=== PATIENT | male | born 1945 | race Caucasian/White ===

== ENCOUNTER 2016-06-29 09:45 | Emergency (ER) | payer MEDICARE, BC ==
[2016-06-29 10:42] VITALS: BP 143/91
--- NOTE | 2016-06-29 11:35 | ED ---
Throat Pain/Nasal Congestion - HPI Summary HPI Summary: [facility] [place] [facility] with reports of frontal ACUÑA and max sinus pressure x 1 week. Pt state also with nasal congestion and PND. Pt denies fever , chills. Pt took Motrin and Sudafed with minimal relief. No vision changes. mild ear fullness. Worse with leaning forward, better with shower. No nausea, vomiting. no cp, sob, abd pain. No rash No vision changes Pt's medications reviewed at this visit. - History of Current Complaint Chief Complaint: UCRespiratory Time Seen by Provider: 06/29/16 11:06 Hx Obtained From: Patient Onset/Duration: Gradual Onset Severity: Mild Associated Signs And Symptoms: Positive: Sinus Discomfort, Nasal Discharge. Negative: Wheezing - Allergies/Home Medications Allergies/Adverse Reactions: Allergies Allergy/AdvReac Type Severity Reaction Status Date / Time No Known Allergies Allergy Verified 06/29/16 10:32 Home Medications: Home Medications RiFAXimin* [Xifaxan*] 550 mg PO BID 06/29/16 [History Confirmed 06/29/16] PMH/Surg Hx/FS Hx/Imm Hx Previously Healthy: Yes Endocrine/Hematology History: Denies: Hx Anticoagulant Therapy, Hx Diabetes, Hx Thyroid Disease Cardiovascular History: Denies: Hx Congestive Heart Failure, Hx Deep Vein Thrombosis, Hx Hypertension , Hx Myocardial Infarction, Hx Pacemaker/ICD Respiratory History: Denies: Hx Asthma, Hx Chronic Obstructive Pulmonary Disease (COPD), Hx Lung Cancer, Hx Pneumonia, Hx Pulmonary Embolism GI History: Denies: Hx Gall Bladder Disease, Hx Gastrointestinal Bleed, Hx Ulcer, Hx Urosepsis History: Denies: Hx Kidney Stones, Hx Renal Disease Musculoskeletal History: Reports: Hx Back Problems - back pain, Other Musculoskeletal History - left calf tingling and numbness Sensory History: Reports: Hx Contacts or Glasses - glasses Denies: Hx Hearing Aid Opthamlomology History: Reports: Hx Contacts or Glasses - glasses Neurological History: Denies: Hx Dementia, Hx Migraine, Hx Seizures, Hx Transient Ischemic Attacks (TIA) Psychiatric History: Denies: Hx Anxiety, Hx Depression, Hx Panic Disorder, Hx Schizophrenia, Hx Bipolar Disorder - Cancer History Cancer Type, 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 Hx Hematologic Symptoms: No - Surgical History Surgery Procedure, Year, and Place: INTESTINAL resection 07/2010 Infectious Disease History: No Infectious Disease History: Denies: Traveled Outside the [place] in Last 30 Days - Family History Known Family History: Positive: Diabetes, Other - mom with DM Negative: Cardiac Disease, Hypertension - Social History Occupation: Employed Full-time Lives: With Family Alcohol Use: None Substance Use Type: Reports: None Smoking Status (MU): Never Smoked Tobacco Review of Systems Constitutional: Negative Eyes: Negative Negative: Photophobia, Blurred Vision, Drainage, Erythema Positive: Nasal Discharge, Other - sinus congestion, frontal and max ACUÑA/ pressure. Negative: Sore Throat Cardiovascular: Negative Respiratory: Negative Gastrointestinal: Negative Negative: Abdominal Pain, Vomiting, Diarrhea, Nausea Musculoskeletal: Negative Skin: Negative Positive: Headache. Negative: Weakness, Paresthesia, Numbness, Syncope All Other Systems Reviewed And Are Negative: Yes Physical Exam Triage Information Reviewed: Yes Vital Signs On Initial Exam: Initial Vitals Temp Pulse Resp BP Pulse Ox 97.7 F 75 18 143/91 99 06/29/16 10:34 06/29/16 10:34 06/29/16 10:34 06/29/16 10:34 06/29/16 10:34 Vital Signs Reviewed: Yes Appearance: Positive: Well-Appearing, No Pain Distress, Well-Nourished Skin: Positive: Warm, Skin Color Reflects Adequate Perfusion, Dry Head/Face: Positive: Normal Head/Face Inspection Eyes: Positive: Normal, EOMI, [place] ENT: Positive: Hearing grossly normal, Pharynx normal. Negative: TMs normal - right TM - dull, no fluid, no erythema left TM wnl turbinates inflammed and boggy + PND No erythema, no exudate + TTP max sinuses R>L + TTP frontal sinus increased intensity when leaned foward Neck: Positive: Supple, Nontender, No Lymphadenopathy Respiratory/Lung Sounds: Positive: Clear to Auscultation, Breath Sounds Present. Negative: Wheezes Cardiovascular: Positive: Normal, RRR, Other - no temporal artery pain b/l. Negative: Murmur Abdomen Description: Positive: Nontender, No Organomegaly, Soft Bowel Sounds: Positive: Present Musculoskeletal: Positive: Normal, Strength/ROM Intact Neurological: Positive: Normal, Sensory/Motor Intact, Alert, Oriented to Person Place, Time Psychiatric: Positive: Normal AVPU Assessment: Alert - [place] Coma Scale Best Eye Response: 4 - Spontaneous Best Motor Response: 6 - Obeys Commands Best Verbal Response: 5 - Oriented Diagnostics - Vital Signs Vital Signs Temp Pulse Resp BP Pulse Ox 06/29/16 10:34 97.7 F 75 18 143/91 99 - Laboratory Lab Statement: Any lab studies that have been ordered have been reviewed, and results considered in the medical decision making process. EENT Course/Dx - Course Assessment/Plan: Pt with frontal pressure, max pressure and pnd x 1 week. Pt with boggy turbinates and PND on exam. Will start Amox, flonase. f/u with PCP. pt states pcp retiring - will give physicial referral line. Pt's blood pressure was elevated at today's visit. Pt advised to follow-up with PCP in 1-2 weeks for a recheck - Diagnoses Provider Diagnoses: Sinusitis Discharge - Discharge Plan Condition: Stable Disposition: HOME Prescriptions: Amoxicillin (*) [Amoxicillin 875 MG (*)] 875 mg PO BID #20 tab Fluticasone NASAL SPRAY 50MCG* [Flonase NASAL SPRAY 50MCG*] 2 spray BOTH NARES DAILY #1 btl Patient Education Materials: Sinusitis (ED) Referrals: Ishan Smith MD [Primary Care Provider] - [facility] [[facility]] Additional Instructions: - Stay well hydrated. Drink plenty of non-alcoholic, non-caffinated beverages. - Take antibiotics as prescribed until gone -Use nasal spray as prescribed - After you have been on antibiotics for 2 days - change your toothbrush and your pillowcase. These infections are spread by secretions - do NOT share eating or drinking utensils - clean items you share with other people such as cell phones, computer mouse, TV remote, computer tablets, etc - moist heat - warm towel, hot shower may be soothing to your sinus pressure - Alternate ibuprofen (Advil, Motrin) 600mg and Tylenol every 3 hours for pain or fever. Take with food. Do NOT take for more than 4-5 days. - if your symptoms persist, contact your doctor to schedule a follow-up appointment. You have been given the contact for the physician referral center through [facility] - they will assist you in finding a new primary care physician when yours retires
== END 2016-06-29 11:40 | disposition home or self-care (01) ==
LOC: UCCORT 09:45
DX: J32.9 Chronic sinusitis, unspecified (principal)
CPT/HCPCS: 99212; G0463

== ENCOUNTER 2016-06-30 14:24 | Emergency (ER) | payer MEDICARE, BC ==
[2016-06-30] MEDS ORDERED: Acetaminophen TAB* 325 MG PO ONE (14:46)
--- NOTE | 2016-06-30 14:47 | UC ---
Headache HPI - HPI Summary HPI Summary: 70 yo male with frontal ACUÑA x 1 weeks nasal congestion seen here yesterday and started on AMOX about 9AM developed shaking chills/increased ACUÑA 8/10, and bilateral sacral iliac pain radiating down both legs to feet and tingling was unable to get comfortable due to back pain nausea - History Of Current Complaint Chief Complaint: UCGeneralIllness Stated Complaint: NAUSEA,HEADACHE Time Seen by Provider: 06/30/16 14:37 Hx Obtained From: Patient Onset/Duration: Gradual Onset, Lasting Weeks Onset Of Symptoms: Still Present, Worse Since(Note Comment) - today Initially Headache Was: Mild Currently Pain Is: Moderate Pain Intensity: 7 Pain Scale Used: 0-10 Numeric Character: Dull, Pressure Location of Headache: Frontal Aggravating Factor: Other - worse bending over Allevating Factors: Nothing Associated Signs And Symptoms: Positive: Nausea, Sinus Pressure - Allergies/Home Medications Allergies/Adverse Reactions: Allergies Allergy/AdvReac Type Severity Reaction Status Date / Time No Known Allergies Allergy Verified 06/30/16 14:34 PMH/Surg Hx/FS Hx/Imm Hx Previously Healthy: Yes Endocrine History Of: Denies: Diabetes, Thyroid Disease, Hyperthyroidism, Hypothyroidism, Dyslipidemia Cardiovascular History Of: Denies: Cardiac Disorders, Hypertension, Pacemaker/ICD, Myocardial Infarction , Congestive Heart Failure, Atrial Fibrillation, Deep Vein Thrombosis, Bleeding Disorders Respiratory History Of: Denies: COPD, Asthma, Bronchitis, Pneumonia, Pulmonary Embolism GI/ History Of: Denies: Gastroesophageal Reflux, Ulcer, Gastrointestinal Bleed, Gall Bladder Disease, Kidney Stones, Diverticulitis, Renal Disease, Urosepsis Neurological History Of: Denies: TIA, CVA, Dementia, Seizures, Migraine Psychological History Of: Denies: Anxiety, Depression, Bipolar Disorder, Schizophrenia, Post Traumatic Stress Disorder Cancer History Of: Reports: Colorectal Cancer Denies: Lung Cancer, Breast Cancer, Prostate Cancer, Cervical Cancer Other History Of: Negative For: HIV, Hepatitis B, Hepatitis C, Anticoagulant Therapy - Surgical History Surgical History: Yes Surgery Procedure, Year, and Place: INTESTINAL resection 07/2010 - Family History Known Family History: Positive: Diabetes, Other - mom with DM Negative: Cardiac Disease, Hypertension - Social History Alcohol Use: None Substance Use Type: None Smoking Status (MU): Never Smoked Tobacco - Immunization History Most Recent Influenza Vaccination: 2016 Most Recent Tetanus Shot: UTD Most Recent Pneumonia Vaccination: UTD Review of Systems Constitutional: Chills Skin: Negative Eyes: Negative ENT: Nasal Discharge Respiratory: Negative Cardiovascular: Negative Gastrointestinal: Diarrhea - diarrhea x 4 months ...has had extensive w/u including colonoscopy, Other - nausea Genitourinary: Negative Motor: Decreased ROM Neurovascular: Negative Musculoskeletal: Negative Neurological: Headache Psychological: Negative All Other Systems Reviewed And Are Negative: Yes Physical Exam Triage Information Reviewed: Yes Appearance: Well-Appearing, No Pain Distress, Well-Nourished, Thin Vital Signs: Initial Vital Signs Temp 98.4 F 06/30/16 14:29 Pulse 80 06/30/16 14:29 Resp 16 06/30/16 14:29 BP 159/98 06/30/16 14:29 Pulse Ox 100 06/30/16 14:29 Vital Signs Reviewed: Yes Eyes: Positive: Conjunctiva Clear ENT: Positive: Hearing grossly normal, Pharynx normal, Nasal congestion, TMs normal, Other: - mild sinus tenderness. Negative: Nasal drainage, TM bulging, TM dull, TM red, Tonsillar swelling, Tonsillar exudate, Trismus, Muffled/hoarse voice Neck: Positive: Supple, Nontender Respiratory: Positive: Lungs clear, Normal breath sounds, No respiratory distress, No accessory muscle use Cardiovascular: Positive: RRR Abdomen Description: Positive: Nontender, No Organomegaly, Soft. Negative: Bruit, CVA Tenderness (R), CVA Tenderness (L), Hepatomegaly, Peritoneal Signs, Pulsatile Mass, Splenomegaly Bowel Sounds: Positive: Present Musculoskeletal: Positive: Strength Intact, ROM Intact, No Edema Neurological: Positive: Alert, Muscle Tone Normal, Other: - normal gait/GCS 15/ 15, cranial nerves intact, strength 5/5, dtrs symmetric Psychological Exam: Normal Skin Exam: Normal Re-Evaluation - Re-Evaluation First Eval Re-Evaluation Time: 16:10 Change: Improved - ACUÑA 6-7, back pain and leg numbness gone, still with nausea CT brain : negative Headache Course/Dx - Differential Dx/Diagnosis Provider Diagnoses: headache Discharge - Discharge Plan Condition: Stable Disposition: HOME Prescriptions: Naproxen Sodium [Naproxen Sodium 500 MG TAB] 500 mg PO BID PRN #30 tab PRN Reason: Pain Ondansetron TAB* [Zofran 4 MG Tab*] 4 mg PO Q6H PRN #10 tab PRN Reason: Nausea Patient Education Materials: Back Pain (ED), General Headache (ED) Referrals: Ishan Smith MD [Primary Care Provider] - 3 Days (I suggest you get rechecked this week/your BP was high here 159/98) Additional Instructions: RECHECK FOR NEW OR WORSENING SYMPTOMS I suggest you follow up with your MD this week If the back pain recurs you may need imaging of your pain
--- NOTE | 2016-06-30 15:25 | RAD ---
HISTORY: Frontal headache COMPARISONS: None TECHNIQUE: Multiple contiguous axial CT scans were obtained of the head without intravenous contrast. FINDINGS: HEMORRHAGE/INFARCT: There is no hemorrhage or acute infarct. MASSES/SHIFT: There is no mass or shift. EXTRA-AXIAL SPACES: There are no extra-axial fluid collections. SULCI AND VENTRICLES: The sulci and ventricles are normal in size and position for the patient's stated age. CEREBRUM: There are no focal parenchymal abnormalities. BRAINSTEM: There are no focal parenchymal abnormalities. CEREBELLUM: There are no focal parenchymal abnormalities. VESSELS: The vessels are grossly normal. PARANASAL SINUSES: The paranasal sinuses are clear. ORBITS: The orbits are unremarkable. BONES AND SOFT TISSUE: No bone or soft tissue abnormalities are noted. OTHER: None IMPRESSION: NO ACUTE INTRACRANIAL PATHOLOGY.
[2016-06-30] MEDS ORDERED: Ondansetron ODT TAB* 4 MG PO ONE (16:10)
[2016-06-30 16:16] VITALS: BP 154/91
== END 2016-06-30 16:31 | disposition home or self-care (01) ==
LOC: UCCORT 14:24
DX: R51 Headache (principal); R09.81 Nasal congestion; Z85.038 Personal history of other malignant neoplasm of large intestine
CPT/HCPCS: 70450; 99212; A9270-GY; G0463

== ENCOUNTER 2018-07-23 18:20 | Emergency (ER) | payer MEDICARE, BC ==
--- OUTSIDE RECORDS SUMMARY | 2018-07-23 18:54 | XMS REPORT | Continuity of Care Document ---
:1945 External Reference #:[id number] Author Name Shasha Donis M.D. Address [address] [place] [address] Care Team Providers Name Role Phone Devan Jerez DO Care Team Information Foam Dispenser Unavailable Devan Jerez DO Primary Care Physician Unavailable Payers Date Identification Numbers Payment Provider Subscriber Policy Number: [id number] Medicare Ari Reyes PayID: [id number] [address] [place] [address] Expires: 2017 Policy Number: [id number] Medicare Edkris Reyes PayID: [id number] [address] [place] [address] Policy Number: [id number] [facility] Ari Reyes PayID: [id number] [address] [place] [address] Problems Active Problems Provider Date Incomplete emptying of bladder Shasha Donis M.D. Onset: 06/01/2018 Bladder muscle dysfunction - overactive Shasha Donis M.D. Onset: 2017 Malignant tumor of prostate Shasha Donis M.D. Onset: 12/29/2017 Family History Date Family Member(s) Observation Comments General Non Contributory Mother due to Alzheimer's () Disease First Sister due to Breast Cancer () - Metastasized to bone Social History Type Date Description Comments Sex Unknown Marital Status Lives With Home Environment Lives Alone Occupation manager marketing sales Work Status Currently Working ETOH Use Rarely consumes alcohol Tobacco Use Start: Unknown Patient denies history of smoking Recreational Drug Use Denies Drug Use Smoking Status Reviewed: 07/02/18 Patient denies history of smoking Allergies, Adverse Reactions, Alerts Active Allergies Reaction Severity Comments Date NKDA 04/01/2016 Shellfish-derived Products Nausea and Vomiting 12/29/2017 Medications Active Medications SIG Qnty Indications Ordering Provider Date Finasteride 1 by mouth every 90tabs Shasha Donis, 07/08/2018 5mg Tablets day M.D. Tamsulosin HCL 1 cap by mouth 90caps Shasha Donis, 0.4mg every day M.D. Capsules Sumatriptan Succinate 1 tablet by Unknown mouth and then 1 100mg Tablets 2 hours later qday prn History Medications Gentamicin Sulfate given once in office Gagandeep, 01/11/2018 - for in office Cynthia Pulliam 01/12/2018 80mg/ml Solution procedure. given intramuscular Ciprofloxacin HCL One by mouth twice a 6tabs C61 Gagandeep, 12/29/2017 - 500mg day starting the day Cynthia Pulliam 01/19/2018 Tablets before procedure Enema morning of procedure 133ml C61 Gagandeep, 12/29/2017 - Enema Cynthia Pulliam 01/11/2018 Myrbetriq 1 by mouth every day 30tabs N32.81 Gagandeep, 12/29/2017 - 50mg Tablets Cynthia Pulliam 06/01/2018 ER 24HR Budesonide 1 by mouth three 90caps R19.7 Carrie, 04/24/2016 - 3mg Caps DR times a day MD Jean Claude 12/29/2017 Part Imodium A-D 1 tab three times a 90tabs R19.7 Carrie, 04/24/2016 - 2mg Tablets day as needed MD Jean Claude 12/29/2017 Cholestyramine Light unit by mouth twice 30units Carrie, 04/14/2016 - a day with large MD Jean Claude 12/29/2017 4GM/Dose Powder glass of water Imodium A-D 1 tab three times a 90tabs R19.7 Carrie, 04/01/2016 - 2mg Tablets day as needed MD Jean Claude Unknown Golytely drink half the 4000ml Z85.9 Carrie, 04/01/2016 - 236gm Solution evening before and MD Jean Claude Unknown Rec half the morning of the procedure (1 cup every 10') Dulcolax 4 tablets taken a 4tabs Z85.9 Carrie, 04/01/2016 - 5mg Tablets DR 8pm the day before MD Jean Claude Unknown the procedure Magnesium Citrate one bottle at noon 296ml Z85.9 Carrie, 04/01/2016 - MD Jean Claude Unknown 1.745GM/30ML Solution Medications Administered in Office Medication SIG Qnty Indications Ordering Provider Date Injection Gentamicin To 80/2ML Shasha Donis M.D. 01/11/2018 Injection Vital Signs Date Vital Result Comment 07/08/2018 3:13pm BP Systolic 145 mmHg BP Diastolic 82 mmHg Body Temperature 98.0 F Heart Rate 70 /min Respiratory Rate 18 /min Height 71 inches 5'11" Weight 160.00 lb BMI (Body Mass Index) 22.3 kg/m2 BSA (Body Surface Area) 1.92 m2 [place] body weight in kilograms 78 kg O2 % BldC Oximetry 97 % Pain Level 0 06/01/2018 10:40am BP Systolic 145 mmHg BP Diastolic 86 mmHg Heart Rate 61 /min Respiratory Rate 16 /min Height 71 inches 5'11" Weight 173.50 lb BMI (Body Mass Index) 24.2 kg/m2 BSA (Body Surface Area) 1.98 m2 [place] body weight in kilograms 78 kg O2 % BldC Oximetry 95 % Ra Pain Level 0 01/19/2018 8:33am BP Systolic 137 mmHg BP Diastolic 77 mmHg Body Temperature 97.7 F Heart Rate 72 /min Respiratory Rate 18 /min Weight 167.00 lb O2 % BldC Oximetry 100 % Pain Level 0 01/11/2018 3:01pm BP Systolic 148 mmHg BP Diastolic 91 mmHg Heart Rate 84 /min Respiratory Rate 16 /min O2 % BldC Oximetry 97 % 01/11/2018 2:59pm BP Systolic 149 mmHg BP Diastolic 53 mmHg Heart Rate 77 /min Respiratory Rate 16 /min O2 % BldC Oximetry 98 % 01/11/2018 2:32pm BP Systolic 163 mmHg BP Diastolic 82 mmHg Body Temperature 97.8 F Heart Rate 69 /min Respiratory Rate 16 /min Height 71 inches 5'11" Weight 165.25 lb BMI (Body Mass Index) 23.0 kg/m2 BSA (Body Surface Area) 1.94 m2 Orient body weight in kilograms 78 kg O2 % BldC Oximetry 97 % Pain Level 0 12/29/2017 2:20pm Height 71 inches 5'11" Weight 170.25 lb BMI (Body Mass Index) 23.7 kg/m2 BSA (Body Surface Area) 1.97 m2 [place] body weight in kilograms 78 kg 04/24/2016 8:52am BP Systolic Sitting Left Arm 138 mmHg BP Diastolic Sitting Left Arm 88 mmHg Heart Rate 67 /min Respiratory Rate 16 /min Height 71 inches 5'11" Weight 166.00 lb BMI (Body Mass Index) 23.1 kg/m2 BSA (Body Surface Area) 1.95 m2 04/01/2016 2:53pm BP Systolic Sitting Left Arm 156 mmHg BP Diastolic Sitting Left Arm 90 mmHg Heart Rate 69 /min Respiratory Rate 16 /min Height 71 inches 5'11" Weight 168.00 lb BMI (Body Mass Index) 23.4 kg/m2 BSA (Body Surface Area) 1.96 m2 [place] body weight in kilograms 78 kg Results Test Date Facility Test Result H/L Range Note Urine Dipstick 07/08/2018 [facility] Color yellow Yellow Ua Clarity clear neg Ua Leuko neg Negative Ua Nitrite neg Negative Ua Urobilinogen 0.2 0.2 - 1.0 E.U./dL Ua Protein neg Negative Ua PH 5.5 Low 6.5-7.5 Ua Blood neg Negative Ua Specific [place] 1.030 1.010-1.030 Ua Ketones neg Negative Ua Bilirubin neg Negative Ua Glucose neg Negative Urine Dipstick 06/01/2018 [facility] Inhouse Ua Color yellow Yellow Ua Clarity clear Clear Ua Leuko negative Negative Ua Nitrite negatve Negative Ua Urobilinogen 0.2 0.2 - 1.0 E.U./dL Ua Protein 15 High Negative Ua PH 5.5 Low 6.5-7.5 Ua Blood negative Negative Ua Specific [place] 1.030 1.010-1.030 Ua Ketones negative Negative Ua Bilirubin negative Negative Ua Glucose negative Negative Ua RFX Micro & Culture 12/29/2017 [facility] Urine Color YELLOW Yellow 1 [address] [place] [address] [phone] Urine Clarity CLEAR Clear Urine Glucose - Dipstick NEGATIVE mg/dL Negative Urine Bilirubin - Dipstick NEGATIVE Negative Urine Ketone NEGATIVE mg/dL Negative Urine Specific [place] >=1.030 N 1.010-1.030 Urine Blood TRACE Negative Urine PH 6.0 Low 6.5-7.5 Urine Protein - Dipstick NEGATIVE mg/dL Negative Urine Urobilinogen - Dipstick 0.2 E.U./dL N 0.2-1.0 Urine Nitrite - Dipstick NEGATIVE Negative Urine Leuk Esterase NEGATIVE Negative Source: URINE, CLEAN CAT <SEE NOTE> 2 Laboratory test 12/29/2017 [facility] Prostate 5.59 ng/mL < 4.0 [address] [place] [address] Antigen [phone] Urine Dipstick 12/29/2017 [facility] Inhouse Ua Color Yellow Yellow Ua Clarity CLEAR Clear Ua Leuko Negative Negative Ua Nitrite Negative Negative Ua Urobilinogen 0.2 0.2 - 1.0 E.U./dL Ua Protein Negative Negative Ua PH 5.5 Low 6.5-7.5 Ua Blood 10 High Negative Ua Specific [place] 1.030 1.010-1.030 Ua Ketones Negative Negative Ua Bilirubin Negative Negative Ua Glucose Negaitve Negative pH Ur Strip.auto 09/05/2017 N2N/CCD Import pH Ur Strip.auto 6.5 6.5-7.5 Urobilinogen Ur 09/05/2017 N2N/CCD Import Urobilinogen Ur 1.0 0.2-1.0 Strip-aCnc Strip-aCn Urine total 09/05/2017 N2N/CCD Import Urine total Moderate High Negative bilirubin bilirubin detection by detection by automated test automated test strip Urine hemoglobin 09/05/2017 N2N/CCD Import Urine hemoglobin Large High Negative detection by detection by automated test automated test strip strip Urine glucose 09/05/2017 N2N/CCD Import Urine glucose 100 High Negative measurement by measurement by automated test automated test strip strip (mass/volume) Urine appearance 09/05/2017 N2N/CCD Import Urine appearance Cloudy Clear determination determination Unloinc 09/05/2017 N2N/CCD Import Unloinc Culture To Follow Nitrite Ur Ql 09/05/2017 N2N/CCD Import Nitrite Ur Ql Positive High Negative Strip.auto Strip.auto Leukocyte 09/05/2017 N2N/CCD Import Leukocyte Trace High Negative esterase Ur Ql esterase Ur Ql Strip.auto Strip.auto Ketones Ur 09/05/2017 N2N/CCD Import Ketones Ur Trace High Negative Strip.auto-mCnc Strip.auto-mCnc Color Ur 09/05/2017 N2N/CCD Import Color Ur Red Yellow Calcium oxalate 09/05/2017 N2N/CCD Import Calcium oxalate Few None Seen crystals crystals detection in detection in urine sedime urine sediment by light microscopy Bacteria 09/05/2017 N2N/CCD Import Bacteria Few None Seen detection in detection in urine sediment by urine sediment light micr by light microscopy Automated urine 09/05/2017 N2N/CCD Import Automated urine TNTC High 0-2 sediment sediment erythrocyte count erythrocyte by micr count by microscopy (number/high power field) Bacteria Ur Cult 09/03/2017 N2N/CCD Import Bacteria Ur Cult No Growth: Final Report pH Ur Strip.auto 09/03/2017 N2N/CCD Import pH Ur Strip.auto 6.0 Low 6.5- 7.5 Urobilinogen Ur 09/03/2017 N2N/CCD Import Urobilinogen Ur 0.2 0.2-1.0 Strip-aCnc Strip-aCnc Urine total 09/03/2017 N2N/CCD Import Urine total Negative Negative bilirubin bilirubin detection by detection by automated test automated test strip Urine hemoglobin 09/03/2017 N2N/CCD Import Urine hemoglobin Trace Negative detection by detection by automated test automated test strip strip Urine glucose 09/03/2017 N2N/CCD Import Urine glucose Negative Negative measurement by measurement by automated test automated test strip strip (mass/volume) Urine appearance 09/03/2017 N2N/CCD Import Urine appearance Clear Clear determination determination Specific gravity 09/03/2017 N2N/CCD Import Specific gravity 1.015 1.010- 1.030 of Urine by of Urine by Automated test Automated test strip strip Prot Ur 09/03/2017 N2N/CCD Import Prot Ur Negative Negative Strip.auto-mCnc Strip.auto-mCnc Nitrite Ur Ql 09/03/2017 N2N/CCD Import Nitrite Ur Ql Negative Negative Strip.auto Strip.auto Leukocyte 09/03/2017 N2N/CCD Import Leukocyte Negative Negative esterase Ur Ql esterase Ur Ql Strip.auto Strip.auto Ketones Ur 09/03/2017 N2N/CCD Import Ketones Ur Negative Negative Strip.auto-mCnc Strip.auto-mCnc Color Ur 09/03/2017 N2N/CCD Import Color Ur Yellow Yellow Laboratory test 04/16/2016 [facility] Calprotectin, 76 ug/g 0-120 4, [address] [place] [address] [phone] 1 C61 R31.9 2 URINE, CLEAN CATCH 3 THIS ASSAY IS NOT INTENDED A CANCER SCREENING TEST The concentration of PSA in a given specimen, determined with assays from different manufacturers, can vary due to differences in assay methods and reagent specificity. Values obtained from different assay methods cannot be used interchangeably. Method: Siemens Dimension Plummer Chemiluminescent immunoassay. 4 R19.7 5 Concentration Interpretation Follow-Up <16 - 50 ug/g Normal None >50 -120 ug/g Borderline Re-evaluate in 4-6 weeks >120 ug/g Abnormal Repeat as clinically indicated Performed at: [address] [id number] Catering Manager: Ishan Salazar MD, Phone: [phone] Procedures Date Code Description Status 07/08/2018 91016 Ultrasound Transrectal Completed 07/08/2018 48532 Cystoscopy Completed 01/11/2018 84445 Theraputic Or Diagnostic Injection Completed 01/11/2018 47647 Ultrasound Guide For Needle Biopsy Completed 01/11/2018 38974 Ultrasound Transrectal Completed 01/11/2018 29416 Biopsy Prostate Needle Or Punch Completed 12/29/2017 72149 Measurement Post Voiding Residual Urine By Completed Ultrasound,Non-Imaging 04/14/2016 [id number] Colonoscopy Completed 04/14/2016 61487 Colonoscopy With Biopsy Completed 01/23/2014 [id number] Colonoscopy Completed 2010 [id number] Colonoscopy Completed 08/07/2010 38531 Anesthesia, Lower Abdomen Surgery Not Otherwise Spec Completed 08/01/2010 29270 EKG Interpretation And Report Only Completed 04/29/2010 [id number] Colonoscopy Completed 11/26/2009 [id number] Colonoscopy Completed 07/30/2009 [id number] Colonoscopy Completed 08/18/2006 02481 Nasal Endoscopy, Diag. Completed Encounters Type Date Location Provider Dx Diagnosis Office Visit 07/08/2018 Urology Shasha Donis, N40.1 Benign prostatic 3:15p M.D. hyperplasia with lower urinary tract symp C61 Malignant neoplasm of prostate Office Visit 06/01/2018 10:30a UrologShasha Hoyos, N40.1 Benign prostatic M.D. hyperplasia with lower urinary tract symp C61 Malignant neoplasm of prostate Office Visit 01/19/2018 8:30a Urology Shasha Donis M.D. C61 Malignant neoplasm of prostate N32.81 Overactive bladder Office Visit 12/29/2017 2:30p Urology Shasha Donis M.D. C61 Malignant neoplasm of prostate N32.81 Overactive bladder Office Visit 04/24/2016 8:45a Jean Claude Chapman MD R19.7 Diarrhea, unspecified Office Visit 04/01/2016 2:45p Jean Claude Chapman MD R19.7 Diarrhea, unspecified Z85.9 Personal history of malignant neoplasm, unspecified Office Visit 08/18/2006 4:15p Operating Room Tashi Hitchcock, 472.0 Rhinitis Chronic Cynthia 478.0 Hypertrophy Nasal Turbinates 470 Deviated Nasal Septum Plan of Treatment Future Appointment(s):01/04/2019 10:00 am - Shasha Donis M.D. at Hqtzk[facility]2403/2018 8:45 am - Shasha Donis M.D. at [id number]/08/2018 - Shasha Dnois M.D.N40.1 Benign prostatic hyperplasia with lower urinary tract symptoComments :Patient had 2 episodes of urinary retention of the past year. Cystoscopy shows trilobar hypertrophyof the prostate. Discussed options of managing this including radical prostatectomy given that he does have a [place] 6 prostate cancer, also discussed less aggressive options like a trial of finasteride for 6 months and he is willing to do that.C61 Malignant neoplasm of prostateNew Labs :Prostate Specific Antigen, Ordered: 07/08/18Comments:Patient with [place] 6 prostate cancer pretreatment PSA of 4.5 since 2014. Plan to continue with active surveillance and will do a PSA today.
[2018-07-23 18:57] VITALS: BP 156/89
--- NOTE | 2018-07-23 19:20 | UC ---
Bite Injury/Animal HPI - HPI Summary HPI Summary: Tick found today on L elbow. Not engorged. Slightly painful. does not have dogs. works landscape. - History of Current Complaint Chief Complaint: Melia Stated Complaint: TICK BITE-LEFT ELBOW Time Seen by Provider: 07/23/18 19:19 Hx Obtained From: Patient Pain Intensity: 2 Pain Scale Used: 0-10 Numeric Onset/Duration: Sudden Onset Type of Bite: Wild Animal - INSECT Character: Puncture Aggravating Factor(s): Nothing Alleviating Factor(s): Nothing Associated Signs And Symptoms: Negative: Fever, Erythema, Lymphadenopathy - Allergies/Home Medications Allergies/Adverse Reactions: Allergies Allergy/AdvReac Type Severity Reaction Status Date / Time shellfish derived Allergy GI Upset Verified 07/23/18 18:54 Home Medications: Home Medications Finasteride TAB* [Proscar TAB*] 1 tab DAILY 07/23/18 [History Confirmed 07/23/18 ] SUMAtriptan TAB* [Imitrex TAB*] 100 mg PO SEE INSTRUCTIONS 07/23/18 [History Confirmed 07/23/18] PMH/Surg Hx/FS Hx/Imm Hx - Additional Past Medical History Additional PMH: CHRONIC URINARY ISSUES Other History Of: Negative For: HIV, Hepatitis B, Hepatitis C, Anticoagulant Therapy - Surgical History Surgical History: Yes Surgery Procedure, Year, and Place: INTESTINAL resection 07/2010 - Family History Known Family History: Positive: None, Diabetes, Other - mom with DM Negative: Cardiac Disease, Hypertension - Social History Alcohol Use: None Substance Use Type: None Smoking Status (MU): Never Smoked Tobacco - Immunization History Most Recent Influenza Vaccination: 2015 Most Recent Tetanus Shot: UTD Most Recent Pneumonia Vaccination: UTD Review of Systems All Other Systems Reviewed And Are Negative: Yes Constitutional: Negative: Fever Skin: Positive: Rash - AROUND A TICK BITE. Musculoskeletal: Negative: Arthralgia Neurological: Negative: Headache Physical Exam Triage Information Reviewed: Yes Appearance: Well-Appearing Vital Signs: Initial Vital Signs Temp 97.6 F 07/23/18 18:55 Pulse 90 07/23/18 18:55 Resp 16 07/23/18 18:55 BP 156/89 07/23/18 18:55 Pulse Ox 99 07/23/18 18:55 Vital Signs Reviewed: Yes Neck: Positive: No Lymphadenopathy - AT NECK OR L ARM Skin: Positive: Other - SMALL IRRITATED AREA AROUND A TICK THAT IS EMBEDDED. tick not engorged. removed w/ no complication. Bite Injury Course/Dx - Course Course Of Treatment: L elbow tick removal, successful. Tick not engorged and embedded for less than 36 hrs. He wanted prophylaxis. We discussed side effects of antibx. Advised to see pcp if he develops symptoms. Of note his BP was elevated and he will see pcp. - Differential Dx/Diagnosis Differential Diagnosis/HQI/PQRI: Other Provider Diagnosis: Tick bite Discharge - Sign-Out/Discharge Documenting (check all that apply): Patient Departure All imaging exams completed and their final reports reviewed: No Studies - Discharge Plan Condition: Good Disposition: HOME Prescriptions: DOXYcycline CAP(*) [DOXYcycline 100MG CAP(*)] 100 mg PO BID 1 Days #2 cap Patient Education Materials: Tick Bite (ED) Referrals: Devan Jerez DO [Primary Care Provider] - Additional Instructions: If symptoms develop please follow up with your primary care - Billing Disposition and Condition Condition: GOOD Disposition: Home
== END 2018-07-23 19:40 | disposition home or self-care (01) ==
LOC: UCCORT 18:20
DX: T63.481A Toxic effect of venom of other arthropod, accidental (unintentional), initial encounter (principal); Y92.9 Unspecified place or not applicable
CPT/HCPCS: 99212; G0463